=== PATIENT | female | born 1960 | race Caucasian/White ===

== ENCOUNTER 2021-11-11 12:52 | Observation (INO) ==
[2021-11-11 14:13] LABS: Basophils % 0.8 % (0.0-0.8); Eosinophils # 0.2 10*3/uL (0.0-0.87); Eosinophils % 3.3 % (0.00-10.9); Hematocrit 40.3 VOL% (35.7-47.0); Hemoglobin 12.8 GM/DL (12.0-16.0); Immature Granulocytes % 0.6 %; Immature Granulocytes Absolute 0.03 #; Lymphocytes # 0.9 10*3/uL (1.4-4.0); Lymphocytes % 17.9 % (21.3-54.2); Mean Corpuscular HGB Conc 31.8 GM/DL (32-36); Mean Corpuscular Volume 89.8 FL (87-102); Mean Platelet Volume 11.1 FL (9.6-12.0); Monocytes # 0.5 10*3/uL (0.11-0.8); Neutrophils % 67.4 % (38.7-73.9); Platelet Count 284 T/CUMM (130-400); Red Blood Count 4.49 MC/CUMM (3.8-5.5); White Blood Count 4.8 T/CUMM (4-12)
[2021-11-11 14:24] LABS: PT Patient Result 11.2 SECS (10.5-12.0); Partial Thromboplastin Time 25.8 SECS (23.8-32.1)
[2021-11-11 14:43] LABS: Calcium 9.4 MG/DL (8.5-10.1); Osmolality,Calculated 275.7 MOS/KG (273-304); Potassium 3.7 MMOL/L (3.5-5.1)
[2021-11-11] MEDS ORDERED: ACETAMINOPHEN 325 MG TABLET PO PRN (15:35)
[2021-11-11] MEDS ORDERED: ONDANSETRON 4 MG/2 ML VIAL IV PRN (15:35)
[2021-11-11] MEDS ORDERED: clonazePAM 0.5 MG TABLET PO PRN (19:40)
[2021-11-12 07:29] LABS: Basophils # 0.1 10*3/uL (0.0-0.2); Basophils % 1.1 % (0.0-0.8); Eosinophils # 0.2 10*3/uL (0.0-0.87); Eosinophils % 4.2 % (0.00-10.9); Hematocrit 38.1 VOL% (35.7-47.0); Hemoglobin 12.1 GM/DL (12.0-16.0); Immature Granulocytes % 0.4 %; Immature Granulocytes Absolute 0.02 #; Lymphocytes # 0.9 10*3/uL (1.4-4.0); Lymphocytes % 19.7 % (21.3-54.2); Mean Corpuscular HGB Conc 31.8 GM/DL (32-36); Monocytes # 0.5 10*3/uL (0.11-0.8); Monocytes % 10.3 % (1.7-12.7); Neutrophils % 64.3 % (38.7-73.9); Platelet Count 260 T/CUMM (130-400); Red Blood Count 4.28 MC/CUMM (3.8-5.5); White Blood Count 4.6 T/CUMM (4-12)
[2021-11-12 07:46] LABS: Calcium 8.9 MG/DL (8.5-10.1); Osmolality,Calculated 274.7 MOS/KG (273-304); Potassium 4.1 MMOL/L (3.5-5.1)
[2021-11-12] MEDS: OLMESARTAN 20 MG TABLET PO SCH (09:12)
[2021-11-12] MEDS: PANTOPRAZOLE 40 MG TABLET PO SCH (09:12)
[2021-11-12] MEDS: hydroCHLOROthiazide 12.5 MG CAPSULE PO SCH (09:12)
[2021-11-12] MEDS ORDERED: ACETAMINOPHEN 325 MG TABLET PO ONE (10:00)
[2021-11-12] MEDS ORDERED: FAMOTIDINE INJ 40 MG in SODIUM CHLORIDE 0.9% 100 ML IV ONE (10:00)
[2021-11-12] MEDS ORDERED: diphenhydrAMINE CAP 50 MG CAPSULE PO ONE (10:00)
[2021-11-12] MEDS ORDERED: DEXAMETHASONE INJ 20 MG in SODIUM CHLORIDE 0.9% 50 ML IV ONE (10:00)
[2021-11-12] MEDS ORDERED: HEPARIN 5,000 UNIT/1 ML VIAL ONE (10:50)
[2021-11-12] MEDS ORDERED: DOXOrubicin 100 MG in SYRINGE 1 EACH IV ONE (11:00)
[2021-11-12] MEDS ORDERED: vinCRIStine 2 MG in SYRINGE 1 EACH IV ONE (11:00)
[2021-11-12] MEDS ORDERED: SODIUM CHLORIDE 0.9% IV ONE ×2 (11:00)
[2021-11-12] MEDS ORDERED: CYCLOPHOSPHAMIDE IV ONE (11:00)
[2021-11-12] MEDS ORDERED: RITUXIMAB ABBS IV ONE (11:00)
[2021-11-12] MEDS: predniSONE 50 MG TABLET PO SCH (12:31)
[2021-11-12] MEDS: allopurinoL 300 MG TABLET PO SCH (12:32)
[2021-11-13 04:59] LABS: Basophils % 0.5 % (0.0-0.8); Immature Granulocytes % 0.5 %; Immature Granulocytes Absolute 0.01 #; Lymphocytes # 0.4 10*3/uL (1.4-4.0); Lymphocytes % 21.8 % (21.3-54.2); Mean Corpuscular HGB Conc 32.5 GM/DL (32-36); Mean Corpuscular Volume 87.1 FL (87-102); Mean Platelet Volume 11.2 FL (9.6-12.0); Monocytes # 0.1 10*3/uL (0.11-0.8); Monocytes % 5.2 % (1.7-12.7); Platelet Count 275 T/CUMM (130-400); Red Blood Count 4.59 MC/CUMM (3.8-5.5); Red Cell Distribution Width 13.9 % (9.3-17.3); White Blood Count 1.9 T/CUMM (4-12)
[2021-11-13 05:17] LABS: Calcium 8.5 MG/DL (8.5-10.1); Osmolality,Calculated 281.5 MOS/KG (273-304); Potassium 4.3 MMOL/L (3.5-5.1)
[2021-11-13 05:21] LABS: Alanine Aminotransferase 12 U/L (13-56); Albumin 3.4 G/DL (3.4-5.0); Alkaline Phosphatase 33 U/L (45-117); Aspartate Amino Transferase 57 U/L (0-37); Bilirubin,Total < 0.39 MG/DL (0.20-1.00); Blood Urea Nitrogen 22 MG/DL (7-18); Calcium 8.5 MG/DL (8.5-10.1); Carbon Dioxide 24 MMOL/L (21-32); Chloride 106 MMOL/L (98-107); Estimated Glom Filtration Rate 113 ML/MIN; Glucose 129 MG/DL (74-106); Osmolality,Calculated 279.7 MOS/KG (273-304); Sodium 138 MMOL/L (136-145); Total Protein 6.4 G/DL (6.4-8.2); Uric Acid 6.6 MG/DL (2.6-6.0)
[2021-11-13 05:41] LABS: Anisocytosis Slight; Band Neutrophils 7 % (0-10); Lymphocytes 24 % (20-55); Platelet Estimate Normal; Total Cells Counted 100
[2021-11-13 08:20] VITALS: BP 138/74
[2021-11-13] MEDS ORDERED: FILGRASTIM-SNDZ 480 MCG/0.8 ML SYRINGE SUBCUT ONE (09:00)
[2021-11-13] MEDS: PANTOPRAZOLE 40 MG TABLET PO SCH (09:15)
[2021-11-13] MEDS: predniSONE 50 MG TABLET PO SCH (09:15)
[2021-11-13] MEDS: hydroCHLOROthiazide 12.5 MG CAPSULE PO SCH (09:15)
[2021-11-13] MEDS: allopurinoL 300 MG TABLET PO SCH (09:15)
[2021-11-13] MEDS: OLMESARTAN 20 MG TABLET PO SCH (09:15)
[2021-11-13] MEDS ORDERED: SODIUM CHLORIDE 0.9% IV ONE (09:30)
[2021-11-13] MEDS ORDERED: RASBURICASE IV ONE (09:30)
== END 2021-11-13 12:34 | disposition home or self-care (01) ==
LOC: N.ED 12:52 → N.EDINP 12:52 → SUATTDRO 15:35 → N.TELES 16:27
PROVIDERS: ADMIT Internal Medicine; ATTEND Internal Medicine